=== PATIENT | male | born 1965 | race Caucasian/White ===

== ENCOUNTER 2016-11-16 23:09 | Inpatient (IN) | payer OTHER ==
[~2016-11-16] VITALS: Ht 172.7 cm; Wt 81.5 kg
[2016-11-17] VITALS (9 sets, daily range): BP systolic 104–113; BP diastolic 64–75; PULSE 68–81; RESP 18; Ht 172.7 cm; Wt 81.5 kg
[2016-11-17] MEDS ORDERED: PANTOPRAZOLE IV 80 MG in SOD CHLORIDE 0.9% 100 ML IVPB STA (00:45)
[2016-11-17] MEDS ORDERED: ONDANSETRON 4 MG INJ IV STA (00:45)
[2016-11-17] MEDS ORDERED: OCTREOTIDE 50 MCG in SOD CHLORIDE 0.9% 25 ML IVPB STA (00:45)
[2016-11-17] MEDS ORDERED: OCTREOTIDE 500 MCG in SOD CHLORIDE 0.9% 49 ML IV STA (00:45)
[2016-11-17] MEDS ORDERED: SOD CHLORIDE 0.9% 1,000 ML IV STA (00:45)
[2016-11-17] MEDS ORDERED: PANTOPRAZOLE IV 80 MG in SOD CHLORIDE 0.9% 100 ML IV STA (00:45)
[2016-11-17 01:30] LABS: ADD SCAN DIFF NO
[2016-11-17 01:32] LABS: ABNORMAL IP MESSAGE 1; HEMATOCRIT 45.3 % (42.0-52.0); HEMOGLOBIN 15.9 g/dl (14.0-18.0); MEAN CORPUSCULAR HEMOGLOBIN 33.8 pg (29.0-33.0); MEAN CORPUSCULAR HGB CONC 35.1 g/dl (32.0-37.0); MEAN CORPUSCULAR VOLUME 96.4 fl (82.0-101.0); MEAN PLATELET VOLUME 10.5 fl (7.4-10.4); PLATELET COUNT 94 10^3/UL (140-415); RED CELL DISTRIBUTION WIDTH 13.4 % (11.5-14.5); WHITE BLOOD COUNT 6.4 10^3/ul (4.8-10.8)
[2016-11-17 01:45] LABS: ALBUMIN 3.6 g/dl (3.3-4.9); INR 1.11; PROTIME 14.3 Sec (12.2-14.2); PT RATIO 1.1
[2016-11-17 01:46] LABS: CHLORIDE 104 mmol/L (97-110); PARTIAL THROMBOPLASTIN TIME 27.9 Sec (25.0-35.0); POTASSIUM 3.5 mmol/L (3.5-5.1); SODIUM 135 mmol/L (135-144)
[2016-11-17 01:48] LABS: ANION GAP 11 (8-16); ASPARTATE AMINO TRANSFERASE 57 IU/L (15-46); BILIRUBIN,INDIRECT 0.9 mg/dl (0-1.1); BILIRUBIN,TOTAL 0.9 mg/dl (0.2-1.3); CARBON DIOXIDE 24 mmol/L (21-31); CREATININE 0.56 mg/dl (0.61-1.24)
[2016-11-17 01:49] LABS: ALANINE AMINOTRANSFERASE 51 IU/L (13-69); ALBUMIN/GLOBULIN RATIO 0.94; ALKALINE PHOSPHATASE 179 IU/L (42-121); BLOOD UREA NITROGEN 8 mg/dl (7-20); CALCIUM 8.6 mg/dl (8.4-10.2); GLUCOSE 103 mg/dl (70-220); TOTAL PROTEIN 7.4 g/dl (6.1-8.1)
[2016-11-17 02:07] LABS: TROPONIN-I < 0.012 ng/ml (0.00-0.12)
--- NOTE | 2016-11-17 02:45 | RADRPT ---
PROCEDURE: CHEST - 1 VIEW CLINICAL INDICATION: 51-year-old male with hematemesis. TECHNIQUE: A single frontal AP upright portable view of the chest was performed. The images were reviewed on a PACS workstation. COMPARISON: None. FINDINGS: The cardiomediastinal silhouette is within normal limits. There is a shallow inspiration. There is bilateral posterior dependent subsegmental atelectasis. There is no evidence for an infiltrate. T here is no evidence for congestive heart failure. There is no evidence for pneumothorax. The osseous structures are intact. IMPRESSION: Shallow inspiration with bilateral posterior dependent subsegmental atelectasis without definite foc al infiltrate. .John Pruett MD, MD Date Time Electronically viewed and signed by .John Pruett MD, on 11/17/2016 02:45 .Joseline
--- NOTE | 2016-11-17 03:03 | ERA ---
ER Documentation Chief Complaint Date/Time DATE: 11/17/16 TIME: 03:01 Chief Complaint vomited blood in large amts.pt states " black color" since 1 hour ago HPI Patient states he vomited a large amount of blood today. Patient is a chronic alcohol abuse. Also complaining of dark tarry stool over the past 2 days.. Patient is a chronic alcohol abuser. No fevers no chills. No other current complaints. ROS All systems reviewed and are negative except as per history of present illness. Medications Home Meds Reported Medications [None] No Conflict Check 03/20/10 Allergies Allergies: Coded Allergies: No Known Allergy (Unverified , 05/01/12) PMhx/Soc Medical and Surgical Hx: pt denies Medical Hx, pt denies Surgical Hx History of Surgery: No Anesthesia Reaction: No Hx Neurological Disorder: No Hx Respiratory Disorders: No Hx Cardiac Disorders: No Hx Psychiatric Problems: No Hx Miscellaneous Medical Probl: No Hx Alcohol Use: Yes (drinks beer everyday, gets "shaky" without) Hx Substance Use: Yes (ALCOHOL Q WEEK "SOMETIMES" - BEER) Hx Tobacco Use: Yes ( 5 packs a week) Smoking Status: Current every day smoker Physical Exam Vitals Vital Signs Date Time Temp Pulse Resp B/P Pulse Ox O2 Delivery O2 Flow Rate FiO2 11/17/16 01:04 80 22 103/68 97 11/16/16 23:10 98.7 103 20 145/77 96 Physical Exam Const: [] Head: Atraumatic Eyes: Normal Conjunctiva ENT: Normal External Ears, Nose and Mouth. Neck: Full range of motion..~ No meningismus. Resp: Clear to auscultation bilaterally Cardio: Regular rate and rhythm, no murmurs Abd: Soft, non tender, non distended. Normal bowel sounds Skin: No petechiae or rashes Back: No midline or flank tenderness Ext: No cyanosis, or edema Neur: Awake and alert Psych: Normal Mood and Affect Result Diagram: 11/17/1610411/17/16104 Results 24 hrs Laboratory Tests Test 11/17/16 01:05 White Blood Count 6.410^3/ul Red Blood Count 4.7010^6/ul Hemoglobin 15.9g/dl Hematocrit 45.3% Mean Corpuscular Volume 96.4fl Mean Corpuscular Hemoglobin 33.8pg Mean Corpuscular Hemoglobin Concent 35.1g/dl Red Cell Distribution Width 13.4% Platelet Count 9410^3/UL Mean Platelet Volume 10.5fl Neutrophils % % Lymphocytes % % Monocytes % % Neutrophils # 10^3/ul Lymphocytes # 10^3/ul Monocytes # 10^3/ul Prothrombin Time 14.3Sec Prothrombin Time Ratio 1.1 INR International Normalized Ratio 1.11 Activated Partial Thromboplast Time 27.9Sec Sodium Level 135mmol/L Potassium Level 3.5mmol/L Chloride Level 104mmol/L Carbon Dioxide Level 24mmol/L Anion Gap 11 Blood Urea Nitrogen 8mg/dl Creatinine 0.56mg/dl Glucose Level 103mg/dl Calcium Level 8.6mg/dl Total Bilirubin 0.9mg/dl Direct Bilirubin 0.00mg/dl Indirect Bilirubin 0.9mg/dl Aspartate Amino Transf (AST/SGOT) 57IU/L Alanine Aminotransferase (ALT/SGPT) 51IU/L Alkaline Phosphatase 179IU/L Troponin I < 0.012ng/ml Total Protein 7.4g/dl Albumin 3.6g/dl Globulin 3.80g/dl Albumin/Globulin Ratio 0.94 Current Medications Medications (Trade) Dose Ordered Sig/Lane Route PRN Reason Start Time Stop Time Status Last Admin Dose Admin Sodium Chloride 1,000 ml @ 1,000 mls/hr Q1H STAT IV 11/17/16 00:45 11/17/16 01:44 DC 11/17/16 01:36 Pantoprazole 80 mg/Sodium Chloride 100 ml @ 400 mls/hr ONCE STAT IVPB 11/17/16 00:45 11/17/16 00:59 DC 11/17/16 01:36 Pantoprazole 80 mg/Sodium Chloride 100 ml @ 10 mls/hr ONCE STAT IV 11/17/16 00:45 11/17/16 10:44 11/17/16 00:45 Octreotide Acetate 50 mcg/ Sodium Chloride 26 ml @ 100 mls/hr Q16M STAT IVPB 11/17/16 00:45 11/17/16 01:00 DC 11/17/16 01:35 Octreotide Acetate/Sodium Chloride (Sandostatin/NS) 50 ml @ 5 mls/hr ONCE STAT IV 11/17/16 00:45 11/17/16 10:44 11/17/16 02:04 Ondansetron HCl (Zofran Inj) 4 mg ONCE STAT IV 11/17/16 00:45 11/17/16 00:49 DC 11/17/16 01:34 Procedures/MDM EKG: Rate/Rhythm: Normal Sinus Rhythm QRS, ST, T-waves: No changes consistent w/ acute ischemia Impression: No evidence of ischemia or arrhythmia Chest X-ray 1V Interpreted by me: Soft Tissue: No acute abnormalities Bones: No acute abnormalities Mediastinum/Cardiac Silhouette/Lungs: No acute abnormalities Medical decision-making: Gentleman comes in with upper GI bleed. Started on octreotide and Protonix drip. Vital signs remained stable. Admitted to hospitalist to telemetry. No further hematemesis here in the ER Critical Care: Time: 35 minutes Treatments/Evaluations: Close monitoring and treatment of unstable vital signs, cardiorespiratory, and neurologic status, while maintaining tight balance of fluid, respiratory, and cardiac interventions. Departure Diagnosis: Primary Impression: Hematemesis Qualified Code: K92.0 - Hematemesis with nausea Condition: Critical ISAIAS RIOS Nov 17, 2016 03:03
[2016-11-17 03:20] LABS: BASOPHIL # 0.1 10^3/ul (0.0-0.1); EOSINOPHILS # 0.3 10^3/ul (0.0-0.5); LYMPHOCYTES # 1.5 10^3/ul (0.8-2.9); MONOCYTE # 0.8 10^3/ul (0.3-0.9); NEUTROPHIL # 3.8 10^3/ul (1.6-7.5)
[2016-11-17 03:21] LABS: PLATELET ESTIMATE PLT APPEAR DECREASED
[2016-11-17] MEDS ORDERED: LORAZEPAM 2 MG INJ IV PRN (05:00)
[2016-11-17] MEDS ORDERED: ONDANSETRON 4 MG INJ IV PRN (05:00)
--- NOTE | 2016-11-17 06:28 | HP ---
DATE OF ADMISSION: 11/17/2016 TIME SEEN: 5 a.m. CHIEF COMPLAINT: Vomiting blood. HISTORY OF PRESENT ILLNESS: The patient is a 51-year-old male with a history of alcohol abuse who p resented to the emergency department with a chief complaint of vomiting blood. He stated he vomited "a lot of bright red blood as well as dark emesis starting last night." He has a history of chroni c alcohol abuse and last drink was last night. He denied dark stool or bright red blood per rectum. When he presented to the ER, blood pressure was 145/75, heart rate 103, respiratory rate 20, tempera ture 98.7, oxygen saturation 96% on room air. Laboratory shows AST 57, alkaline phosphatase 179. O therwise, CBC and CMP are within normal limits. Hemoglobin was almost 16. A chest x-ray was done w hich shows shallow inspiration with the bilateral posterior dependent subsegmental atelectasis witho ut definite focal infiltrate. The patient was started on octreotide and Protonix drip and admitted for a GI evaluation. REVIEW OF SYSTEMS: A 12-point review was performed, negative except as mentioned in the HPI. PAST MEDICAL HISTORY: As per HPI. PAST SURGICAL HISTORY: Denies. SOCIAL HISTORY: Drinks alcohol on a daily basis, smokes about a pack a day. Denied illicit drug us e. ALLERGIES: NO KNOWN DRUG ALLERGIES. HOME MEDICATIONS: None. PHYSICAL EXAMINATION: VITAL SIGNS: Stable. GENERAL: No acute distress, slightly sleepy, but arousable. HEENT: No obvious head deformity. Pupils react to light. Extraocular muscles intact. CARDIOVASCULAR: Regular rate and rhythm. No extra sounds. LUNGS: Clear. ABDOMEN: Soft. There is discomfort to deep palpation mainly in the epigastric area without rebound tenderness or rigidity. There are positive bowel sounds. EXTREMITIES: No edema. NEUROLOGIC: No focal deficit. LABORATORY: Pertinent positives are as mentioned in the HPI. IMAGING: Chest x-ray results as mentioned in the HPI. IMPRESSION: 1. Upper gastrointestinal bleed. 2. Chronic alcohol abuse. 3. Mildly elevated AST. PLAN: He will be placed on Protonix ad we will continue his octreotide. We will place a GI consult . We will monitor his hemoglobin closely. Given his history of chronic alcohol abuse, his last dri nk being yesterday, he will be started on a banana bag alternating with IV fluids. He also receive Librium and as-needed Ativan will be written for him for withdrawal. Further workup and management will be per clinical course. Dictated By: ISAIAS SETH/NICOLE Conf#: [id number] DID#: [id number]
[2016-11-17] MEDS ORDERED: MULTIVITAMINS 10 ML, THIAMINE 100 MG, FOLIC ACID 1 MG in SOD CHLORIDE 0.9% 1,000 ML IVPB SCH (09:00)
[2016-11-17] MEDS: CHLORDIAZEPOXIDE 25 MG CAP PO SCH ×3 (09:00→21:00)
[2016-11-17] MEDS ORDERED: PANTOPRAZOLE IV 80 MG in SOD CHLORIDE 0.9% 100 ML IV SCH (11:00)
[2016-11-17] MEDS: OCTREOTIDE 1 MG in SOD CHLORIDE 0.9% 95 ML IV SCH (11:48)
[2016-11-17] MEDS: SOD CHLORIDE 0.9% 1,000 ML IV SCH ×3 (13:33→23:30)
[2016-11-17 16:31] LABS: HEMATOCRIT 44.9 % (42.0-52.0); HEMOGLOBIN 15.1 g/dl (14.0-18.0)
--- NOTE | 2016-11-17 18:46 | CONS ---
Date/Time of Note Date/Time of Note DATE: 11/17/16 TIME: 18:40 Assessment/Plan Assessment/Plan Chief Complaint/Hosp Course IMPRESSION: 1. Upper gastrointestinal bleed: ddx include esophageal variceal bleed, Mallery carranza tear, PUD, gastritis, esophagitis, portal hypertensive gastropathy 2. Chronic alcohol abuse. 3. Mildly elevated AST. PLAN: 1. dc protonix gtt and change to protonix 40 mg iv bid 2. continue octreotide gtt for possible variceal bleeding 3. EtOH withdrawal precautions 4. He is on schedule for EGD with hemostasis with Dr. Valles Problems: Consultation Date/Type/Reason Admit Date/Time Nov 17, 2016 at 02:58 Date of Consultation: Nov 17, 2016 Type of Consultation: GI Reason for Consultation hematemesis Hx of Present Illness 51-year-old male with a history of alcohol abuse who is admitted for hematemesis. He initially has URI symptoms with violent cough. Since last night , he became nauseous and vomitted BRB and dark clots. He has a history of chronic alcohol abuse and last drink was last night. He denied dark stool or bright red blood per rectum. No fever, chills, chest pain or sob. He denies h/o hematemesis. Currently no n/v. All point ros administered, pertinent positives and negatives in HPI otherwise negative. Past Medical History Medical History: no pertinent history Past Surgical History Past Surgical Hx: no surgical history Family History Significant Family History: no pertinent family hx Social History Alcohol Use: heavy Smoking Status: Current every day smoker Drug Use: none Exam/Review of Systems Vital Signs Vitals Vital Signs Date Time Temp Pulse Resp B/P Pulse Ox O2 Delivery O2 Flow Rate FiO2 11/17/16 16:17 70 11/17/16 15:59 98.4 18 113/70 94 11/17/16 04:40 Room Air Intake and Output 11/16/16 11/16/16 11/17/16 15:00 23:00 07:00 Intake Total 1126 ml Balance 1126 ml Exam Constitutional: alert, oriented, well developed Psych: nl mood/affect, no complaints Head: atraumatic, normocephalic Eyes: EOMI, nl conjunctiva, nl lids, nl sclera ENMT: mucosa pink and moist, nl external ears & nose, nl lips & teeth, nl nasal mucosa & septum Neck: non-tender, supple Respiratory: clear to auscultation, normal air movement Cardiovascular: nl pulses, regular rate and rhythm Gastrointestinal: bowel sounds, non-tender, soft Musculoskeletal: nl extremities to inspection, nl gait and stance Neurological: nl mental status, nl speech, nl strength Results Result Diagram: 11/17/16 1617 11/17/16 0105 Results 24 hrs Laboratory Tests Test 11/17/16 01:05 11/17/16 16:17 White Blood Count 6.4 Red Blood Count 4.70 Hemoglobin 15.9 15.1 Hematocrit 45.3 44.9 Mean Corpuscular Volume 96.4 Mean Corpuscular Hemoglobin 33.8 H Mean Corpuscular Hemoglobin Concent 35.1 Red Cell Distribution Width 13.4 Platelet Count 94 L Mean Platelet Volume 10.5 H Neutrophils % 59.0 Lymphocytes % 23.0 Monocytes % 13.0 H Eosinophils % 4.0 Basophils % 1.0 Neutrophils # 3.8 Lymphocytes # 1.5 Monocytes # 0.8 Eosinophils # 0.3 Basophils # 0.1 Differential Comment MANUAL DIFF Platelet Estimate PLT APPEAR DECREASED Large Platelets 1+ Prothrombin Time 14.3 H Prothrombin Time Ratio 1.1 INR International Normalized Ratio 1.11 Activated Partial Thromboplast Time 27.9 Sodium Level 135 Potassium Level 3.5 Chloride Level 104 Carbon Dioxide Level 24 Anion Gap 11 Blood Urea Nitrogen 8 Creatinine 0.56 L Glucose Level 103 Calcium Level 8.6 Total Bilirubin 0.9 Direct Bilirubin 0.00 Indirect Bilirubin 0.9 Aspartate Amino Transf (AST/SGOT) 57 H Alanine Aminotransferase (ALT/SGPT) 51 Alkaline Phosphatase 179 H Troponin I < 0.012 Total Protein 7.4 Albumin 3.6 Globulin 3.80 H Albumin/Globulin Ratio 0.94 Medications Medications Current Medications Octreotide Acetate 1 mg/ Sodium Chloride 100 ml @ 5 mls/hr Q20H IV Last administered on 11/17/16 11:48; Admin Dose 5 MLS/HR; Start 11/17/16 at 11:00 Sodium Chloride (NS) 1,000 ml @ 100 mls/hr Q10H IV Last administered on 13:33; Admin Dose 100 MLS/HR; Start 11/17/16 at 05:00 Lorazepam (Ativan) 2 mg Q2 PRN IV CONTROL WITHDRAWAL SYMPTOMS; Start 11/17/16 at 05:00 Chlordiazepoxide (Librium) 50 mg TID PO ; Start 11/17/16 at 09:00 Ondansetron HCl (Zofran Inj) 4 mg Q6H PRN IV NAUSEA AND/OR VOMITING; Start 11/17 at 05:00 Vitamin B Complex/ Vitamin C (Berocca) 1 cap DAILY PO ; Start 11/18/16 at 09:00 Pantoprazole (Protonix Iv) 40 mg BID@,18 IV ; Start 11/18/16 at 06:00 TIM JACOME MD Nov 17, 2016 18:45
[2016-11-18] VITALS (13 sets, daily range): BP systolic 74–120; BP diastolic 46–80; PULSE 60–66; RESP 11–24
[2016-11-18 05:36] LABS: ADD SCAN DIFF NO
[2016-11-18] MEDS: PANTOPRAZOLE 40 MG INJ IV SCH ×2 (05:38→17:22)
[2016-11-18 05:46] LABS: HEMATOCRIT 43.3 % (42.0-52.0); HEMOGLOBIN 14.7 g/dl (14.0-18.0); MEAN CORPUSCULAR HEMOGLOBIN 33.6 pg (29.0-33.0); MEAN CORPUSCULAR HGB CONC 33.9 g/dl (32.0-37.0); MEAN CORPUSCULAR VOLUME 99.1 fl (82.0-101.0); MEAN PLATELET VOLUME 11.3 fl (7.4-10.4); PLATELET COUNT 110 10^3/UL (140-415); RED BLOOD COUNT 4.37 10^6/ul (4.70-6.10); RED CELL DISTRIBUTION WIDTH 13.4 % (11.5-14.5); WHITE BLOOD COUNT 4.9 10^3/ul (4.8-10.8)
[2016-11-18 06:07] LABS: MAGNESIUM 2.1 mg/dl (1.7-2.5); PHOSPHORUS 2.2 mg/dl (2.5-4.9)
[2016-11-18 06:08] LABS: CHOL/HDL RATIO 3.4 RATIO
[2016-11-18 06:10] LABS: ALBUMIN 2.9 g/dl (3.3-4.9); POTASSIUM 3.9 mmol/L (3.5-5.1)
[2016-11-18 06:13] LABS: ALBUMIN/GLOBULIN RATIO 0.8; BILIRUBIN,INDIRECT 1.5 mg/dl (0-1.1); BILIRUBIN,TOTAL 1.5 mg/dl (0.2-1.3); CALCIUM 7.9 mg/dl (8.4-10.2); CREATININE 0.67 mg/dl (0.61-1.24); TOTAL PROTEIN 6.5 g/dl (6.1-8.1)
[2016-11-18 06:32] LABS: THYROID STIMULATING HORMONE 0.17 MIU/L (0.465-4.680)
[2016-11-18] MEDS: OCTREOTIDE 1 MG in SOD CHLORIDE 0.9% 95 ML IV SCH (06:42)
[2016-11-18] MEDS: CHLORDIAZEPOXIDE 25 MG CAP PO SCH ×3 (09:00→21:03)
[2016-11-18 09:04] LABS: EOSINOPHILS # 0.2 10^3/ul (0.0-0.5); LYMPHOCYTES # 1.9 10^3/ul (0.8-2.9); MONOCYTE # 0.2 10^3/ul (0.3-0.9); NEUTROPHIL # 2.6 10^3/ul (1.6-7.5)
[2016-11-18] MEDS: VITAMIN B COMPLEX/VIT C CAP PO SCH (09:32)
[2016-11-18] MEDS: SOD CHLORIDE 0.9% 1,000 ML IV SCH ×2 (09:36→21:03)
[2016-11-18] MEDS: CHOLECALCIFEROL 1,000 UNIT TAB PO SCH (12:02)
[2016-11-18] MEDS ORDERED: MIDAZOLAM 1 MG/ML 2 ML INJ ONE (15:00)
[2016-11-18] MEDS ORDERED: FENTAnyl 50 MCG/ML VIAL ONE (15:04)
[2016-11-18] MEDS ORDERED: PROPOFOL 20 ML ONE (15:04)
--- NOTE | 2016-11-18 17:25 | PN ---
DATE: 11/18/2016 TIME OF EVALUATION: 11:00 a.m. SUBJECTIVE DATA: No more hematemesis reported. Stable hemoglobin and hematocrit. VITAL SIGNS: Temperature 98.3, pulse rate 65, respiratory rate 20, blood pressure 115/72, oxygen saturation 96% on room air. GENERAL: An overweight male lying in bed in no apparent distress. HEENT: Head normocephalic and atraumatic. Eyes: Anicteric sclerae. Conjunctivae clear. ENT: Nasal septum is midline. Oral mucosa is dry. NECK: Supple. No JVD noticed. RESPIRATORY: Bilaterally clear to auscultation. No adventitious breath sounds heard. No use of accessory muscles of respiration. CARDIAC: Regular rate and rhythm. No murmurs heard. ABDOMEN: Soft, nontender and nondistended. Bowel sounds positive in all 4 quadrants. GENITOURINARY: Deferred. EXTREMITIES: No cyanosis, no clubbing, no edema. Peripheral pulses are palpable. NEUROLOGIC: The patient is awake, alert and oriented. Cranial nerves are grossly intact. LABORATORY AND DIAGNOSTIC DATA: Hemoglobin 14.7, hematocrit 42.3, platelet count 110. Sodium 138, potassium 3.9, chloride 107, carbon dioxide 25, anion gap 11 , BUN 10, creatinine 0.67, glucose 131, calcium 7.9, phosphorus 2.3, magnesium 2.1, total bilirubin 1.5, direct bilirubin 1.5, AST 62, ALT 39, vitamin D 26.3. ASSESSMENT AND PLAN: 1. Upper gastrointestinal bleeding. Etiology could be peptic ulcer disease versus bleeding esophageal varices versus Reny-Dueñas tear. Stable hemoglobin and hematocrit. Transfuse blood products as needed. Continue Protonix and octreotide drip. The patient is scheduled for an esophagogastroduodenoscopy. Gastroenterology following. 2. Alcohol abuse. The patient will be maintained on vitamin supplements. He will also be maintained on a tapering dose of Librium and p.r.n. IV benzodiazepines for any acute alcohol withdrawal, delirium. Cessation was advised. 3. Thrombocytopenia. Most probably secondary to underlying alcoholism. We will monitor the patient for bleeding. 4. Transaminitis with hyperbilirubinemia. Most probably secondary to underlying alcoholism. We will avoid any hepatotoxic medications. 5. Vitamin D deficiency. Will start the patient on vitamin D supplements. 6. Fluids, electrolytes, nutrition. The patient currently n.p.o. for esophagogastroduodenoscopy. 7. Deep venous thrombosis prophylaxis with bilateral sequential compression devices. 8. Gastrointestinal prophylaxis with proton pump inhibitors. 9. Plan. Await esophagogastroduodenoscopy. Continue proton pump inhibitors. Monitor for any bleeding. Case discussed with Dr. Dawkins. RUBEN DAWKINS MD, AM/NICOLE Conf#: [id number] DID#: [id number] MTDD
[2016-11-19] MEDS: OCTREOTIDE 1 MG in SOD CHLORIDE 0.9% 95 ML IV SCH (04:07)
[2016-11-19] MEDS: PANTOPRAZOLE 40 MG INJ IV SCH (05:15)
[2016-11-19 05:19] LABS: ADD SCAN DIFF NO
[2016-11-19 05:24] LABS: BASOPHILS % 0.4 % (0.0-2.0); EOSINOPHILS # 0.3 10^3/ul (0.0-0.5); EOSINOPHILS % 5.6 % (0.0-7.0); HEMATOCRIT 42.3 % (42.0-52.0); HEMOGLOBIN 14.2 g/dl (14.0-18.0); LYMPHOCYTES % 44.1 % (15.0-51.0); MEAN CORPUSCULAR HEMOGLOBIN 33.2 pg (29.0-33.0); MEAN CORPUSCULAR HGB CONC 33.6 g/dl (32.0-37.0); MEAN CORPUSCULAR VOLUME 98.8 fl (82.0-101.0); MEAN PLATELET VOLUME 10.8 fl (7.4-10.4); MONOCYTE # 0.5 10^3/ul (0.3-0.9); MONOCYTES % 11.6 % (0.0-11.0); NEUTROPHIL # 1.7 10^3/ul (1.6-7.5); NEUTROPHILS % 38.1 % (39.0-77.0); PLATELET COUNT 117 10^3/UL (140-415); RED BLOOD COUNT 4.28 10^6/ul (4.70-6.10); RED CELL DISTRIBUTION WIDTH 13.3 % (11.5-14.5); WHITE BLOOD COUNT 4.5 10^3/ul (4.8-10.8)
[2016-11-19 06:01] LABS: POTASSIUM 3.6 mmol/L (3.5-5.1)
[2016-11-19 06:04] LABS: CREATININE 0.69 mg/dl (0.61-1.24)
[2016-11-19 06:05] LABS: CALCIUM 7.7 mg/dl (8.4-10.2)
[2016-11-19 06:19] LABS: MAGNESIUM 1.9 mg/dl (1.7-2.5); PHOSPHORUS 2.5 mg/dl (2.5-4.9)
[2016-11-19] MEDS: SOD CHLORIDE 0.9% 1,000 ML IV SCH (06:47)
[2016-11-19 07:56] VITALS: BP 109/69; RESP 18
[2016-11-19] MEDS: CHLORDIAZEPOXIDE 25 MG CAP PO SCH (08:35)
[2016-11-19] MEDS: CHOLECALCIFEROL 1,000 UNIT TAB PO SCH (08:35)
[2016-11-19] MEDS: VITAMIN B COMPLEX/VIT C CAP PO SCH (08:35)
--- NOTE | 2016-11-19 09:39 | PN ---
Date/Time of Note Date/Time of Note DATE: 11/19/16 TIME: 09:30 Assessment/Plan VTE Prophylaxis VTE Prophylaxis Intervention: ambulation Lines/Catheters IV [facility]from [facility] Peripheral IV Urinary Cath still in place: No Assessment/Plan Assessment/Plan Assessment * Hematemesis * 11/18/2016 EGD * Grade 1/IV esophageal varices * Severe gastritis * Severe duodenitis R/O H .pylori infection Plan * D/C octreotide drip * pantoprazole po Subjective 24 Hr Interval Summary Free Text/Dictation * course reviewed with nurse * patient seen and examined * no hematemesis,nor vomiting * latest hemoglobin 14.2 * 11/18/2016 EGD * Grade 1/IV esophageal varices * Severe gastritis * Severe duodenitis R/O H .pylori infection Exam/Review of Systems Vital Signs Vitals Vital Signs Date Time Temp Pulse Resp B/P Pulse Ox O2 Delivery O2 Flow Rate FiO2 11/19/16 07:56 97.8 66 18 109/69 93 11/18/16 16:23 Room Air Intake and Output 11/18/16 11/18/16 11/19/16 15:00 23:00 07:00 Intake Total 900 ml 500 ml 1305 ml Balance 900 ml 500 ml 1305 ml Exam Constitutional: alert, oriented Psych: no complaints Neck: supple Respiratory: clear to auscultation, normal air movement Cardiovascular: nl pulses, regular rate and rhythm Gastrointestinal: bowel sounds, non-tender, soft, No rebound or guarding Musculoskeletal: nl extremities to inspection, nl gait and stance Neurological: nl mental status Results Result Diagram: 11/19/16 0425 11/19/16 0425 Results 24 hrs Laboratory Tests Test 11/19/16 04:25 White Blood Count 4.5 L Red Blood Count 4.28 L Hemoglobin 14.2 Hematocrit 42.3 Mean Corpuscular Volume 98.8 Mean Corpuscular Hemoglobin 33.2 H Mean Corpuscular Hemoglobin Concent 33.6 Red Cell Distribution Width 13.3 Platelet Count 117 L Mean Platelet Volume 10.8 H Neutrophils % 38.1 L Lymphocytes % 44.1 Monocytes % 11.6 H Eosinophils % 5.6 Basophils % 0.4 Nucleated Red Blood Cells % 0.0 Neutrophils # 1.7 Lymphocytes # 2.0 Monocytes # 0.5 Eosinophils # 0.3 Basophils # 0.0 Nucleated Red Blood Cells # 0.0 Sodium Level 139 Potassium Level 3.6 Chloride Level 109 Carbon Dioxide Level 22 Anion Gap 12 Blood Urea Nitrogen 10 Creatinine 0.69 Glucose Level 90 # Calcium Level 7.7 L Phosphorus Level 2.5 Magnesium Level 1.9 Medications Medications Current Medications Octreotide Acetate 1 mg/ Sodium Chloride 100 ml @ 5 mls/hr Q20H IV Last administered on 11/19/16 04:07; Admin Dose 5 MLS/HR; Start 11/17/16 at 11:00 Sodium Chloride (NS) 1,000 ml @ 100 mls/hr Q10H IV Last administered on 06:47; Admin Dose 100 MLS/HR; Start 11/17/16 at 05:00 Lorazepam (Ativan) 2 mg Q2 PRN IV CONTROL WITHDRAWAL SYMPTOMS; Start 11/17/16 at 05:00 Chlordiazepoxide (Librium) 50 mg TID PO Last administered on 11/19/16 08:35; Admin Dose 50 MG; Start 11/17/16 at 09:00 Ondansetron HCl (Zofran Inj) 4 mg Q6H PRN IV NAUSEA AND/OR VOMITING; Start 11/17 at 05:00 Vitamin B Complex/ Vitamin C (Berocca) 1 cap DAILY PO Last administered on 08:35; Admin Dose 1 CAP; Start 11/18/16 at 09:00 Pantoprazole (Protonix Iv) 40 mg BID@06,18 IV Last administered on 11/19/16 05: 15; Admin Dose 40 MG; Start 11/18/16 at 06:00 Cholecalciferol (Vitamin D) 1,000 unit DAILY PO Last administered on 11/19/16 08:35; Admin Dose 1,000 UNIT; Start 11/18/16 at 12:00 KASHMIR ESCOBAR MD Nov 19, 2016 09:39
--- NOTE | 2016-11-19 10:06 | PDOCDIS ---
Discharge Instructions DIAGNOSIS Discharge Diagnosis: Gastritis, duodenitis. CONDITION Patient Condition: Stable HOME CARE INSTRUCTIONS: Diet Instructions: Regular FOLLOW UP/APPOINTMENTS Appointments Ar Cortez MD Specialty: Internal Medicine Office Address: [address] [place], [place] [id number] Office OTHER ORDERS: Other Orders: 1. Take a regular, preferably low spice diet as tolerated. 2. Take medications as per prescription. 3. Avoid taking alcohol. 4. Resume activities as tolerated. 5. Follow-up with your primary care physician in 2 weeks. If you do not have a primary care physician, please call Dr. Ar Cortez's office. RUBEN BURNS NP Nov 19, 2016 10:06
[2016-11-19] MEDS ORDERED: VITBC PO (10:09)
[2016-11-19] MEDS ORDERED: PANT40TA4 PO (10:09)
[2016-11-19] MEDS ORDERED: CHOL100062 PO (10:09)
--- NOTE | 2016-11-19 11:42 | DS ---
DATE OF ADMISSION: 11/17/2016 DATE OF DISCHARGE: 11/19/2016 FINAL DIAGNOSES: 1. Upper gastrointestinal bleeding secondary to severe gastritis and severe duodenitis. 2. Grade I/IV esophageal varices. 3. Alcohol abuse. 4. Thrombocytopenia. 5. Transaminitis with hyperbilirubinemia. 6. Vitamin D deficiency. CONSULTANTS: Dr. Kinga Valles, Gastroenterology. HOSPITAL COURSE: This is a 51-year-old male with past medical history of alcohol abuse who presented to the emergency department with chief complaint of vomiting blood. The patient verbalized that he has been vomiting a lot of blood. The patient has a history of chronic alcohol abuse. His last drink was on the night of 11/15/2016. The patient denied any dark stool or bright red blood per rectum. The patient's H and H was stable in the emergency room. However, provided the patient's history of present illness and the comorbidities , a clinical decision was made to admit the patient to inpatient setting to have him further evaluated. The patient was admitted to inpatient medical/surgical floor. The patient was started on Protonix and octreotide drip. The patient was seen and evaluated by gastroenterology. The patient underwent an esophagogastroduodenoscopy that showed grade I/IV esophageal varices, severe gastritis and severe duodenitis. The patient's octreotide drip was discontinued. The patient was maintained on proton pump inhibitors. The patient had no more episodes of hematemesis. The patient is a current alcohol abuser. The patient was counseled on cessation. The patient was informed about the importance of being compliant with his medications. The patient was noticed to have vitamin D deficiency. The patient was given some vitamin D supplements. The patient had a stable hospital course. The patient is stable to be discharged home. The patient was cleared by gastroenterology to be discharged home. DISCHARGE PLAN: The patient will be discharged home today. The patient was instructed to take medications as per prescription. He was advised to take a regular, preferably low-spicy diet. He was advised to avoid taking alcohol. HE was instructed to resume activities as tolerated. He was instructed to follow up with his primary care physician in 2 weeks and if he does not have a primary care physician to please call Dr. Ar Cortez's office. The patient verbalized understanding of his discharge instructions. CONDITION AT DISCHARGE: Stable. DISCHARGE MEDICATIONS: 1. Vitamin D3 1000 units p.o. daily. 2. Protonix 40 mg p.o. b.i.d. 3. Vitamin B complex 1 tablet p.o. daily. PERTINENT LABORATORY AND DIAGNOSTIC DATA: 1. Fasting lipid panel: Triglycerides 100, total cholesterol 109, LDL 57, HDL 32. 2. Vitamin D 26.3. 3. Hemoglobin A1c 5.1. 4. Latest CBC: WBC 4.5, hemoglobin 14.2, hematocrit 42.8, platelet count 117. 5. Latest BMP: Sodium 139, potassium 3.6, chloride 109, carbon dioxide 20, anion gap 12, BUN 10, creatinine 0.6, glucose 90, calcium 7.7, phosphorus 2.7, magnesium 1.9. 6. Esophagogastroduodenoscopy on 11/18/2016. Grade I/IV esophageal varices with gastritis and erosive duodenitis. At this time, I would like to thank Dr. Valles for seeing the patient, doing the necessary procedures, and providing clinical recommendations. The case and management of this patient was fully discussed with Dr. Dawkins. Approximately 35 minutes was spent on coordinating the discharge on this patient. RUBEN DAWKINS MD, AM/NICOLE Conf#: [id number] DID#: [id number] MTDD
[2016-11-19] MEDS ORDERED: PANTOPRAZOLE (EC) 40 MG TAB PO SCH (18:00)
--- NOTE | 2016-11-19 20:43 | GILP ---
DATE OF PROCEDURE: NAME OF PROCEDURE: Esophagogastroduodenoscopy with biopsies. SURGEON: Kashmir Valles MD. PREOPERATIVE DIAGNOSIS: POSTOPERATIVE DIAGNOSIS: HISTORY AND INDICATIONS: The patient is being evaluated for gastrointestinal bleeding. PREMEDICATION: Monitored anesthesia care by anesthesiologist. INSTRUMENT USED: Olympus panendoscope. After informed consent, with the patient/relatives understanding the procedure, its indications, pot ential risks and complications, including but not limited to: allergic reaction, bleeding, perforati on or infection, and after all pertinent questions were answered to the patient's satisfaction, the patient/relatives signed witnessed informed consent. Following this, premedication was administered slowly IV push under careful cardiovascular and respi ratory monitoring with pulse oximetry, automatic blood pressure and athletic monitor. Once the sedative effect was achieved the patient was place in the left lateral decubitus, the panen doscope was introduced and advanced under visual control. Careful examination of the upper gastrointestinal tract, both on insertion as well as withdrawal of the instrument disclosed the following findings: ESOPHAGUS: The esophagus is remarkable for patient for the presence of a small, grade I to II/IV es ophageal varices with no stigmata of recent bleeding. STOMACH: Upon entrance to the stomach air, it was insufflated. The gastric wiggins distended normall y. There was erythema and edema of the mucosa of a moderate degree. Biopsies were obtained to rule out H. pylori infection. PYLORUS: The pylorus appears patent and within normal limits, with no evidence of gastric outlet obs truction. DUODENUM: The duodenal mucosa was carefully examined in the duodenal bulb as well as the second port ion of the duodenum and appears unremarkable with no evidence of duodenitis, ulcer or neoplasm. The instrument was then withdrawn, the patient tolerated the procedure well and was transfer out of the endoscopy suite awake, and in good condition to continue recovery under observation IMPRESSION 1. Grade I to II/IV esophageal varices with no stigmata of recent bleeding. No therapeutic interve ntion required. 2. Gastritis, rule out Helicobacter pylori infection, biopsies obtained. RECOMMENDATIONS: The patient will be treated with PPIs. Pathology will be reviewed as soon as avai lable. Surveillance EGD in 6 months is recommended. Further recommendation will depend on the elizabeth ent's clinical course. Dictated By: KASHMIR VALLES MS/NICOLE Conf#: [id number] [facility]#: [id number]
== END 2016-11-19 12:45 | disposition home or self-care (01) | DRG 379 ==
LOC: E/R 23:09 → MS4 11-17 02:58 → PP2 11-17 04:24 → MS4 11-17 04:44 → PP2 11-17 22:40
PROVIDERS: ADMIT Internal Medicine; ATTEND Internal Medicine
PROC: 0DB68ZX Excision of Stomach, Via Natural or Artificial Opening Endoscopic, Diagnostic (ICD-10-PCS; principal; 2016-11-18 15:00)
DX: K92.0 Hematemesis (principal); D69.6 Thrombocytopenia, unspecified; F17.200 Nicotine dependence, unspecified, uncomplicated; F10.10 Alcohol abuse, uncomplicated; E80.6 Other disorders of bilirubin metabolism; E55.9 Vitamin D deficiency, unspecified; I85.00 Esophageal varices without bleeding; K29.70 Gastritis, unspecified, without bleeding; K29.80 Duodenitis without bleeding
CPT/HCPCS: 36415; 71010; 80048; 80053; 80061; 82150; 82652; 83036; 83690; 83735; 84100; 84439; 84443; 84484; 85014; 85018; 85025; 85610; 85730; 86850; 86900; 86901; 88305; 88312; 93005; 96365; 96367; 96375; C9113; J2250; J2354; J2405; J3010; J3411; J7030

== ENCOUNTER 2017-07-08 07:07 | Day surgery (SDC) | payer OTHER ==
[~2017-07-08] VITALS: Ht 167.6 cm; Wt 88.5 kg
[~2017-07-08 07:07] MED LIST: CHOL100062 PO; PANT40TA4 PO; VITBC PO
[2017-07-08 08:04] VITALS: Ht 167.6 cm; Wt 88.5 kg
[2017-07-08 08:23] VITALS: BP 116/71; PULSE 67; RESP 18
[2017-07-08] MEDS ORDERED: LIDOCAINE 2% (SDV) 5 ML INJ ONE (08:51)
[2017-07-08] MEDS ORDERED: PROPOFOL 40 ML ONE (08:51)
[2017-07-08] MEDS ORDERED: MIDAZOLAM 1 MG/ML 2 ML INJ ONE (08:52)
--- NOTE | 2017-07-08 09:08 | OPPN ---
Date/Time of Note Date/Time of Note DATE: 07/08/17 TIME: 09:07 Operative Report Preoperative Diagnosis Screening Postoperative Diagnosis Internal and external hemorrhoids No colon neoplasm is identified Operation/Procedure Performed Colonoscopy Surgeon see signature line customer assistance representative None Anesthesia: MAC Estimated blood loss: none Transfusion Required none Specimen None Grafts/Implants none Complications none HIWOT DAVIS MD Jul 08, 2017 09:08
--- NOTE | 2017-07-08 10:11 | GILP ---
DATE OF PROCEDURE: NAME OF PROCEDURE: Colonoscopy. SURGEON: Hiwot Ashley MD. PREOPERATIVE DIAGNOSIS: Screening colonoscopy. POSTOPERATIVE DIAGNOSES: 1. Colonoscopy all the way to the cecum. 2. Internal and external hemorrhoids. 3. No colon neoplasm was identified. INDICATION FOR THE PROCEDURE: Mr. Miky Garcia is a 51-year-old male patient who was having rectal bleeding. He never had screening colonoscopy. The procedure and possible complications were well explained to the patient, he understood and conse nted to the procedure. DESCRIPTION OF PROCEDURE: Under the influence of anesthesia, the colonoscope was carefully introduc ed in the rectum and under direct vision, it was advanced all the way to the cecum. FINDINGS: The patient had internal and external hemorrhoids. No colon neoplasm was identified. He tolerated the procedure very well and there was no complication from the procedure. At the end o f the procedure, he was awake with stable vital signs and he was discharged home to the care of his family. IMPRESSION: Please see postoperative diagnoses. PLAN: 1. Anusol-HC suppositories at bedtime p.r.n. 2. Next screening colonoscopy in 10 years. Dictated By: HIWOT DOHERTY/NICOLE Conf#: [id number] [facility]#: [id number]
== END 2017-07-08 10:45 | disposition home or self-care (01) ==
LOC: GIL 07:07
PROVIDERS: ATTEND Internal Medicine Gastroenterology
DX: Z12.11 Encounter for screening for malignant neoplasm of colon (principal); K64.4 Residual hemorrhoidal skin tags; K64.8 Other hemorrhoids
CPT/HCPCS: 45378; J2250

== ENCOUNTER 2017-09-08 10:24 | Emergency (ER) | END 2017-09-08 22:24 | disposition home or self-care (01) ==

== ENCOUNTER 2018-06-01 15:12 | Inpatient (IN) | END 2018-06-03 12:35 | disposition home or self-care (01) | DRG 292 ==